=== PATIENT | male | born 1980 | race Caucasian/White ===

== ENCOUNTER 2020-10-08 12:50 | Observation (INO) ==
[2020-10-08 13:41] LABS: Basophils # 0.1 10*3/uL (0.0-0.2); Basophils % 0.7 % (0.0-0.8); Eosinophils # 0.1 10*3/uL (0.0-0.87); Eosinophils % 0.9 % (0.00-10.9); Hematocrit 50.8 VOL% (42.0-52.0); Hemoglobin 16.3 GM/DL (14.0-18.0); Immature Granulocytes % 0.3 %; Immature Granulocytes Absolute 0.03 #; Lymphocytes # 2.1 10*3/uL (1.4-4.0); Lymphocytes % 23.7 % (21.2-54.2); Mean Corpuscular HGB Conc 32.1 GM/DL (32-36); Mean Corpuscular Volume 91.5 FL (87-102); Mean Platelet Volume 10.7 FL (9.6-12.0); Monocytes % 6.6 % (1.7-12.7); Neutrophils % 67.8 % (38.7-73.9); Platelet Count 244 T/CUMM (130-400); Red Blood Count 5.55 MC/CUMM (3.8-5.5); Red Cell Distribution Width 15.1 % (9.3-17.3); White Blood Count 8.9 T/CUMM (4-12)
[2020-10-08 13:59] LABS: Albumin 3.9 G/DL (3.4-5.0); Bilirubin,Total 1.7 MG/DL (0.2-1.0); Osmolality,Calculated 277.8 MOS/KG (273-304); Total Protein 7.6 G/DL (6.4-8.2)
[2020-10-08] MEDS ORDERED: FUROSEMIDE 40 MG/4 ML VIAL IV STA (14:05)
[2020-10-08] MEDS ORDERED: ASPIRIN 325 MG TABLET PO STA (14:05)
[2020-10-08 14:59] LABS: Barbiturates Screen,Urine Negative (Negative); Benzodiazepines Screen,Urine Negative (Negative); Cannabinoid Screen,Urine Negative (Negative); Opiate Screen,Urine Negative (Negative); Phencyclidine Screen,Urine Negative (Negative)
[2020-10-08] MEDS ORDERED: GLUCAGON 1 MG VIAL IM PRN (15:07)
[2020-10-08] MEDS ORDERED: hydrALAZINE 20 MG/1 ML VIAL IV PRN (15:07)
[2020-10-08] MEDS ORDERED: ONDANSETRON 4 MG/2 ML VIAL IV PRN (15:07)
[2020-10-08] MEDS ORDERED: DEXTROSE 50% 25 GM/50 ML VIAL IV PRN (15:07)
[2020-10-08] MEDS ORDERED: ACETAMINOPHEN 325 MG TABLET PO PRN (15:07)
[2020-10-08] MEDS ORDERED: ENOXAPARIN 40 MG/0.4 ML SYRINGE SUBCUT SCH (15:30)
[2020-10-08] MEDS: carvediloL 6.25 MG TABLET PO SCH ×2 (15:46→20:45)
[2020-10-08 15:50] LABS: Risk Ratio 4.46; Thyroid Stimulating Hormone 1.34 uIU/ml (0.358-3.74); VLDL CHOLESTEROL 31.8 MG/DL
[2020-10-08] MEDS: ENOXAPARIN 100 MG/ML SYRINGE SUBCUT SCH (17:46)
[2020-10-08] MEDS: hydrALAZINE 25 MG TABLET PO SCH (20:45)
[2020-10-08] MEDS ORDERED: FUROSEMIDE 40 MG/4 ML VIAL IV SCH (21:00)
[2020-10-09] MEDS: ENOXAPARIN 100 MG/ML SYRINGE SUBCUT SCH ×2 (04:28→17:59)
[2020-10-09 05:19] LABS: Basophils # 0.1 10*3/uL (0.0-0.2); Basophils % 0.8 % (0.0-0.8); Eosinophils # 0.1 10*3/uL (0.0-0.87); Eosinophils % 1.4 % (0.00-10.9); Hematocrit 47.7 VOL% (42.0-52.0); Hemoglobin 15.4 GM/DL (14.0-18.0); Immature Granulocytes % 0.3 %; Immature Granulocytes Absolute 0.03 #; Lymphocytes # 3.5 10*3/uL (1.4-4.0); Lymphocytes % 36.6 % (21.2-54.2); Mean Corpuscular HGB Conc 32.3 GM/DL (32-36); Mean Corpuscular Volume 90.2 FL (87-102); Mean Platelet Volume 10.3 FL (9.6-12.0); Monocytes % 7.7 % (1.7-12.7); Neutrophils % 53.2 % (38.7-73.9); Platelet Count 253 T/CUMM (130-400); Red Blood Count 5.29 MC/CUMM (3.8-5.5); Red Cell Distribution Width 14.9 % (9.3-17.3); White Blood Count 9.6 T/CUMM (4-12)
[2020-10-09 05:43] LABS: Calcium 8.6 MG/DL (8.5-10.1); Osmolality,Calculated 274.1 MOS/KG (273-304)
[2020-10-09] MEDS ORDERED: POTASSIUM CHLORIDE RIDER 10 MEQ in PREMIX 1 EACH IV PRN ×2 (07:46→07:53)
[2020-10-09] MEDS: ASPIRIN CHEW 81 MG TABLET PO SCH (08:22)
[2020-10-09] MEDS: PANTOPRAZOLE 40 MG TABLET PO SCH (08:22)
[2020-10-09] MEDS: ISOSORBIDE MONONITRATE 30 MG TABLET PO SCH (08:22)
[2020-10-09] MEDS: hydrALAZINE 25 MG TABLET PO SCH ×3 (08:22→20:50)
[2020-10-09] MEDS: carvediloL 6.25 MG TABLET PO SCH ×2 (08:22→20:50)
[2020-10-09] MEDS: FUROSEMIDE 40 MG/4 ML VIAL IV SCH (08:23)
[2020-10-09] MEDS: POTASSIUM CHLORIDE 20 MEQ TABLET PO PRN ×2 (17:08→18:47)
[2020-10-09] MEDS ORDERED: ATORVASTATIN 40 MG TABLET PO SCH (21:00)
[2020-10-09] MEDS ORDERED: FUROSEMIDE 40 MG/4 ML VIAL IV SCH (21:00)
[2020-10-10 06:14] LABS: Basophils # 0.1 10*3/uL (0.0-0.2); Basophils % 0.7 % (0.0-0.8); Eosinophils # 0.1 10*3/uL (0.0-0.87); Eosinophils % 1.6 % (0.00-10.9); Hemoglobin 15.7 GM/DL (14.0-18.0); Immature Granulocytes % 0.6 %; Immature Granulocytes Absolute 0.05 #; Lymphocytes # 3.5 10*3/uL (1.4-4.0); Lymphocytes % 39.6 % (21.2-54.2); Mean Corpuscular HGB Conc 34.1 GM/DL (32-36); Mean Platelet Volume 10.7 FL (9.6-12.0); Neutrophils % 49.5 % (38.7-73.9); Platelet Count 255 T/CUMM (130-400); Red Blood Count 5.29 MC/CUMM (3.8-5.5); Red Cell Distribution Width 14.9 % (9.3-17.3); White Blood Count 8.8 T/CUMM (4-12)
[2020-10-10] MEDS: ENOXAPARIN 100 MG/ML SYRINGE SUBCUT SCH (06:16)
[2020-10-10 06:35] LABS: Calcium 8.2 MG/DL (8.5-10.1); Osmolality,Calculated 283.4 MOS/KG (273-304); Potassium 3.1 MMOL/L (3.5-5.1)
[2020-10-10 06:40] LABS: Troponin I 0.402 NG/ML (0.00-0.045)
[2020-10-10] MEDS ORDERED: POTASSIUM CHLORIDE 20 MEQ TABLET PO ONE (07:45)
[2020-10-10] MEDS ORDERED: POTASSIUM CHLORIDE 20 MEQ TABLET PO SCH (09:30)
[2020-10-10] MEDS: hydrALAZINE 25 MG TABLET PO SCH (10:17)
[2020-10-10] MEDS: ASPIRIN CHEW 81 MG TABLET PO SCH (10:17)
[2020-10-10] MEDS: ISOSORBIDE MONONITRATE 30 MG TABLET PO SCH (10:17)
[2020-10-10] MEDS: PANTOPRAZOLE 40 MG TABLET PO SCH (10:17)
[2020-10-10] MEDS: FUROSEMIDE 40 MG/4 ML VIAL IV SCH (10:18)
[2020-10-10] MEDS: carvediloL 6.25 MG TABLET PO SCH (10:36)
[2020-10-10 11:42] VITALS: BP 111/76
== END 2020-10-10 14:00 | disposition home or self-care (01) ==
LOC: N.ED 12:50 → N.EDINP 12:50 → N.TELEN 17:16
PROVIDERS: ADMIT Internal Medicine; ATTEND Internal Medicine